=== PATIENT | male | born 1960 | race Caucasian/White ===

== ENCOUNTER 2023-11-28 10:42 | Emergency (ER) | payer OTHER, SELFPAY ==
[2023-11-28 10:47] VITALS: BP 173/109
--- NOTE | 2023-11-28 10:59 | ED.GENMED ---
History of Present Illness
General
Chief Complaint: Musculo-Skeletal Complaint
Source: patient
Exam Limitations: none
Time Seen by Provider: 11/28/23 10:51
Nursing documentation reviewed up to this point in time: agreed with
History of Present Illness
History of Present Illness:
Patient presents to ED secondary to worsening left lower leg pain with swelling over the past 3 days, after initially injuring his left ankle when he was squatting down, working on his RV. Denies any injuries. Denies fever or chills. Denies loss
of sensation or weakness. Denies chest pain or shortness of breath. Patient unsure of family history of blood clots. Patient does not take any blood thinning medications.
Past History
Past History
ED Past Medical History: HTN
ED Past Surgical History: Other (gastric bypass)
Social History
Tobacco: Non-smoker
Living: with family
Review of Systems
Review of Systems
Allergies reviewed?: Yes
All Other Systems: ROS reviewed and negative except as documented in HPI and ROS
Constitutional: Reports no symptoms
Respiratory: Reports no symptoms; Denies trouble breathing
Cardiac: Reports no symptoms; Denies chest pain
Musculoskeletal: Reports other (Leg pain with swelling)
Skin: Reports no symptoms
Neurological: Reports no symptoms; Denies weakness
Phy Exam
Physical Exam
Physical Exam:
Physical Exam
General: no apparent distress, not acutely ill. afebrile
Head: nc/at. eomi
Neck: supple. normal range of motion
Neuro: alert and oriented. no focal neurological deficits
Skin: no rash
Psychiatric: well kept. interactive and cooperative
Extremities: LLE edema with erythema, along with mild posterior knee tenderness to palpation.
Course
Orders/Labs/Results
Orders:
Orders
11/28/23 10:58
Ibuprofen [Motrin] 400 mg PO NOW STA
US Legs, Left [US Periph Venous LOWER Ext LT] Urgent
Comment:
Reason For Exam: LLE swelling/erythema/pain
11/28/23 11:00
CR Ankle - Left Min 3 Views Urgent
Comment:
Reason For Exam: trauma
11/28/23 11:38
Case Management Consult ONCE
Case Management Consult: Discharge Planning
11/28/23 12:43
Apixaban [Eliquis] 5 mg PO NOW STA
11/28/23 12:48
Apixaban [Eliquis] 5 mg .ROUTE .STK-MED ONE
11/28/23 12:49
Apixaban [Eliquis] 5 mg PO NOW STA
Vital Signs
Initial and Last Documented VS:
Initial Vital Signs
Temp Pulse Resp BP Pulse Ox
98.2 F 83 16 173/109 98
11/28/23 10:47 11/28/23 10:47 11/28/23 10:47 11/28/23 10:47 11/28/23 10:47
Last Documented Vital Signs
Temp Pulse Resp BP Pulse Ox
98.2 F 76 19 143/118 94
11/28/23 10:47 11/28/23 12:22 11/28/23 12:22 11/28/23 12:22 11/28/23 12:22
MDM/Problems Addressed
MDM/Problems Addressed:
Ultrasound lower extremity result discussed with on-call vascular surgeon, Dr. Song. As long as there is no common femoral vein involved and pain adequately controlled, feel the patient can be treated as an outpatient via anticoagulation, i.e.
Eliquis/Xarelto.
Eliquis coupon provided by case management. Advised PCP F/U as outpatient or return to ED with worsening symptoms, i.e. fever/worsening pain/cp/sob. Pt expresses understanding at time of discharge.
*Critical Care Note
Total Time (30-74mins, 75-104mins- exclusive of procedures): Not Applicable
ED Attending Note
-
Portions of this chart may have been created with voice recognition software.� Occasional wrong word or��sound alike� substitutions may have occurred due to the inherent limitations of voice recognition software.
Discharge Plan
Departure
Patient Disposition: Home (Routine Discharge)
Date of Disposition: 11/28/23
Time of Disposition: 12:44
Patient with high blood pressure during this ER visit?: Yes
Condition: Good
Discharge Problem:
DVT (deep venous thrombosis)
Instructions: Deep Vein Thrombosis (Blood Clots in the Arm) (DC)
Prescriptions:
New
Eliquis 5 mg tablet
5 mg PO BID Qty: 90 0RF
Rx Instructions:
10mg po BID x 1 week, then 5 mg po BID afterwards
No Action
naproxen sodium [Aleve] 220 MG tablet
220 mg PO PRN PRN (Reason: pain)
Lisinopril
1 tab PO DAILY
hydrocodone-acetaminophen [Vicodin] 1 EACH tablet
1 ea PO Q4H Qty: 20 0RF
docusate sodium [Stool Softener] 100 MG tablet
200 mg PO BID Qty: 0 0RF
cyclobenzaprine 10 MG tablet
10 mg PO TIDPRN PRN (Reason: low back pain/spasm) Qty: 30 0RF
prednisone 20 MG tablet
40 mg PO DAILY Qty: 6 0RF
ibuprofen 600 MG tablet
600 mg PO TIDPRN PRN (Reason: pain) Qty: 30 0RF
Referrals:
Parviz Peter MD [Family Provider] -
Activity Restrictions/Additional Instructions:
As discussed, please follow-up with your primary care physician for further evaluation and treatment. Your prescription has been sent electronically to [facility] pharmacy in [place].
Interventions
Interventions:
*Risk Screen - Suicide Last Done: 11/28/23 11:09
*Neglect/Abuse Screening Last Done: 11/28/23 11:09
ED- Fall Risk Assessment Last Done: 11/28/23 11:09
*Nursing Disposition Last Done: 11/28/23 12:58
ED-Musculoskeletal Assessment Last Done: 11/28/23 11:08
Discharge Date and Time
Discharge Date/Time: 11/28/23 12:58
Print Language: CITIZEN OF [place]
[2023-11-28] MEDS: MOTRIN 400 MG PO (11:05)
[2023-11-28 12:22] VITALS: BP 143/118
[2023-11-28] MEDS: ELIQUIS 5 MG PO ×2 (12:46→12:51)
--- NOTE | 2023-11-28 12:47 | CM ---
CM consult placed for Eliquis pricing. It would cost patient $417 out of pocket. CM introduced self and role. Spoke with patient at bedside. Patient is agreeable to cost. 2 Eliquis coupons given to patient and an education booklet also given to
patient.
Above information shared with Dr. Sinclair, attending.
== END 2023-11-28 12:58 | disposition home or self-care (01) ==
LOC: EMR 10:42
PROVIDERS: EMERGENCY PHYSICIAN Emergency Medicine; FAMILY PHYSICIAN Internal Medicine
DX: I82.402 Acute embolism and thrombosis of unspecified deep veins of left lower extremity (principal); R60.0 Localized edema; M79.662 Pain in left lower leg; I10 Essential (primary) hypertension; M19.90 Unspecified osteoarthritis, unspecified site; Z98.84 Bariatric surgery status
CPT/HCPCS: 99284; 73610; 93971

== ENCOUNTER → 2023-12-25 08:20 | Outpatient (REF) | payer OTHER, SELFPAY | LOC: RAD 08:20 | PROVIDERS: ATTENDING PHYSICIAN Internal Medicine | DX: I82.4Z2 Acute embolism and thrombosis of unspecified deep veins of left distal lower extremity (principal); Z82.49 Family history of ischemic heart disease and other diseases of the circulatory system; M99.83 Other biomechanical lesions of lumbar region; M79.641 Pain in right hand | CPT/HCPCS: 93971 ==

== ENCOUNTER 2024-08-19 12:37 | Inpatient (IN) | payer OTHER, SELFPAY ==
[2024-08-19 06:35] VITALS: BP 192/111
[2024-08-19 07:05] VITALS: BMI 57.7
--- NOTE | 2024-08-19 07:05 | ED.GENMED ---
History of Present Illness
General
Chief Complaint: Flank Pain
Source: patient
Exam Limitations: none
Time Seen by Provider: 08/19/24 06:44
Nursing documentation reviewed up to this point in time: agreed with
History of Present Illness
History of Present Illness:
64-year-old male with past medical history of hypertension, previous gastric bypass, DVT currently on Eliquis presenting to the emergency department with abrupt onset of right-sided flank pain with radiation to the right groin over the past 3 hours
or so. He has associated nausea no vomiting no diarrhea no changes in bowel movements. Had a normal bowel movement this morning. Denies any chest pain shortness of breath or fevers. Denies similar symptoms in the past.
Past History
Past History
ED Past Medical History: HTN
ED Past Surgical History: Other (gastric bypass)
Social History
Tobacco: Non-smoker
Living: with family
Review of Systems
Review of Systems
Allergies reviewed?: Yes
All Other Systems: ROS reviewed and negative except as documented in HPI and ROS
Phy Exam
Physical Exam
Physical Exam:
GENERAL: Alert , in no apparent distress
EYE: pupils equal and reactive
NECK: Supple, no significant adenopathy.
ENT: o/p clr, mmm.
CARDIAC: Regular rate and rhythm .
LUNGS: Clear breath sounds bilaterally, no acute respiratory distress, no wheezes/rales/rhonchi
ABDOMEN: Soft, without focal tenderness, no r/g, no cvat
NEUROLOGICAL: Alert and oriented, no focal neuro deficits
SKIN: Warm and dry, skin intact.
MUSCULOSKELETAL: No edema, well perfused.
PSYCH: Normal and appropriate interaction.
Course
Orders/Labs/Results
Orders:
Orders
08/19/24 06:59
CT Abd/pel Without Iv Or Oral Urgent
Comment:
Reason For Exam: right flank pain
0.9% Sodium Chloride 1000 ml [Nss] 1,000 ml IV BOLUS
HYDROmorphone [Dilaudid] 1 mg IV NOW STA
08/19/24 07:18
Complete Blood Count/With Diff Urgent
Comprehensive Metabolic Panel Urgent
Urinalysis Reflex To Culture Urgent
Date Specimen was Collected: 08/19/24
Time Specimen was Collected: 06:47
Urine Microscopic Reflex Cult Urgent
08/19/24 07:48
Morphine Sulfate 4 mg IV NOW STA
08/19/24 08:26
Morphine Sulfate 4 mg IV NOW STA
Tamsulosin [Flomax] 0.4 mg PO NOW STA
Abnormal Lab Results
08/19/24
07:18
WBC 13.1 H 10^3/uL
(4.8-10.8)
MCHC 31.8 L g/dL
(33.0-37.0)
MPV 12.0 H fL
(7.4-10.4)
Abs Immat Gran (auto) 0.1 H 10^3/uL
(0-0.05)
Absolute Neuts (auto) 11.4 H 10^3/uL
(1.4-6.5)
Absolute Lymphs (auto) 0.9 L 10^3/uL
(1.2-3.4)
Absolute Monos (auto) 0.7 H 10^3/uL
(0.1-0.6)
Neutrophils % 87.0 H %
(42.2-75.2)
Lymphocytes % 6.8 L %
(20.5-51.1)
Chloride 112 H mmol/L
(98-107)
Glucose 159 H mg/dl
(70-99)
Ur Occult Blood Reflex 3+ A
(Negative)
Urine Bacteria (Reflex) Few A
(Negative)
08/19/24 07:18
08/19/24 07:18
Vital Signs
Initial and Last Documented VS:
Initial Vital Signs
Temp Pulse Resp BP Pulse Ox
97.7 F 61 30 192/111 98
08/19/24 06:35 08/19/24 06:35 08/19/24 06:35 08/19/24 06:35 08/19/24 06:35
Last Documented Vital Signs
Temp Pulse Resp BP Pulse Ox
97.7 F 61 30 192/111 98
08/19/24 06:35 08/19/24 06:35 08/19/24 06:35 08/19/24 06:35 08/19/24 06:35
MDM/Problems Addressed
MDM/Problems Addressed:
64-year-old male presenting with concerns of abrupt onset of right-sided flank pain. Concern for potential kidney stone plan for CT scan labs and urinalysis. The patient had a gastric bypass and also is on Eliquis. Unable to give Toradol.
Patient was given Dilaudid for discomfort. Thought did not help patient was given 2 doses of morphine without improvement. Case discussed with urology recommended admitting to medicine for pain control Flomax for monitoring and potential
intervention if symptoms or not improving.
*Critical Care Note
Total Time (30-74mins, 75-104mins- exclusive of procedures): Not Applicable
ED Attending Note
-
Portions of this chart may have been created with voice recognition software.� Occasional wrong word or��sound alike� substitutions may have occurred due to the inherent limitations of voice recognition software.
Discharge Plan
Departure
Patient Disposition: Admit
Date of Disposition: 08/19/24
Time of Disposition: 10:25
Admit to: Med/Surg
Admit to doctor: Christy
Presentation/result/management discussed w/ accepting MD/DO: Hospitalist
Patient with high blood pressure during this ER visit?: No
Condition: Good
Covid-19: Not Applicable
Discharge Problem:
Calculus, ureteral
Prescriptions:
No Action
naproxen sodium [Aleve] 220 MG tablet
220 mg PO PRN PRN (Reason: pain)
Lisinopril
1 tab PO DAILY
hydrocodone-acetaminophen [Vicodin] 1 EACH tablet
1 ea PO Q4H Qty: 20 0RF
docusate sodium [Stool Softener] 100 MG tablet
200 mg PO BID Qty: 0 0RF
cyclobenzaprine 10 MG tablet
10 mg PO TIDPRN PRN (Reason: low back pain/spasm) Qty: 30 0RF
prednisone 20 MG tablet
40 mg PO DAILY Qty: 6 0RF
ibuprofen 600 MG tablet
600 mg PO TIDPRN PRN (Reason: pain) Qty: 30 0RF
Eliquis 5 mg tablet
5 mg PO BID Qty: 90 0RF
Rx Instructions:
10mg po BID x 1 week, then 5 mg po BID afterwards
Referrals:
Parviz Peter MD [Family Provider] -
Interventions
Interventions:
*Risk Screen - Suicide Last Done: 08/19/24 06:35
*General Assessment Last Done: 08/19/24 07:05
*Neglect/Abuse Screening Last Done: 08/19/24 07:05
*ED- Fall Risk Assessment Last Done: 08/19/24 07:05
*ED COVID-19 Vaccine History Last Done: 08/19/24 07:05
KL-Qmmzzo-Wshrlabhkh Assessment Last Done: 08/19/24 07:05
ED-Male Genitourinary Assessment Last Done: 08/19/24 07:05
Discharge Date and Time
Print Language: FRENCH
[2024-08-19] MEDS: NSS 1000 IV ×2 (07:18→14:37)
[2024-08-19] MEDS: DILAUDID 1 MG IV (07:19)
[2024-08-19 07:44] LABS: % Basophils 0.4 % (0-2); % Eosinophils 0.3 % (0-6); % Immature Granulocytes 0.4 % (0-0.5); % Lymphocytes 6.8 % (20.5-51.1); % Monocytes 5.1 % (1.7-9.3); Absolute Basophils 0.1 10^3/uL (0-0.2); Absolute Immature Granulocytes 0.1 10^3/uL (0-0.05); Absolute Lymphocytes 0.9 10^3/uL (1.2-3.4); Absolute Monocytes 0.7 10^3/uL (0.1-0.6); Absolute Neutrophils 11.4 10^3/uL (1.4-6.5); Hematocrit 46.8 % (39.0-52.0); Hemoglobin 14.9 g/dL (13.0-18.0); Mean Corp Hgb Conc. 31.8 g/dL (33.0-37.0); Mean Corpuscular Hgb 27.9 pg (27.0-31.0); Mean Corpuscular Volume 87.5 fL (80.0-94.0); Nucleated Red Blood Cells % 0 % (-); Platelet Count 296 10^3/uL (130-400); Red Blood Cell Count 5.35 10^6/uL (4.70-6.10); Red Cell Dist. Width 14.1 % (11.5-14.5); White Blood Cell Count 13.1 10^3/uL (4.8-10.8)
[2024-08-19 07:56] LABS: ALT (SGPT) 31 U/L (0-50); AST (SGOT) 26 U/L (17-59); Alkaline Phosphatase 85 U/L (38-126); Blood Urea Nitrogen 15 mg/dl (9-20); Calcium 9.2 mg/dl (8.4-10.2); Carbon Dioxide 27 mmol/L (22-30); Chloride 112 mmol/L (98-107); Estimated Creatinine Clearance 108 ml/min; Glucose 159 mg/dl (70-99); Potassium 4.7 mmol/L (3.5-5.1); Sodium 144 mmol/L (135-145); Total Bilirubin 0.6 mg/dl (0.2-1.3); Total Protein 7.1 g/dl (6.3-8.2); eGFR > 60.00
[2024-08-19] MEDS: MORPHINE SULFATE 4 MG IV ×3 (08:09→11:23)
[2024-08-19 08:28] LABS: Urine Albumin Negative (Neg - Trace); Urine Bilirubin Negative (Negative); Urine Character Slightly Cloudy (Clear); Urine Color Yellow; Urine Glucose Negative (Negative); Urine Ketone Negative (Negative); Urine Leukocyte Negative (Negative); Urine Nitrite Negative (Negative); Urine Occult Blood 3+ (Negative); Urine Urobilinogen Negative (Neg - 1+)
[2024-08-19] MEDS: FLOMAX 0.4 MG PO (08:37)
[2024-08-19 08:56] LABS: Urine Bacteria Few (Negative); Urine Red Blood Cell 0-2 /HPF (0-2); Urine White Cell 0-2 /HPF (0-5)
--- NOTE | 2024-08-19 11:31 | HPS.HSE ---
Family Physician
-
Family Physician: Kenneth Peter
Chief Complaint
-
R flank pain
History of Present Illness
64yo M with morbid obesity, HTN, Hx of provoked DVT in November 2023 (due to trauma) on ELiquis came with sudden onset of R flank pain, found 4 mm calculus of the right ureterovesical junction with associated mild right hydroureteronephrosis. No
fevers at home noted. No Hx of nephrolithiasis.
Patient was recently scheduled for US LE to determine if Eliquis can be stopped. Reasonable to withhold therapeutic anticoagulation and do US LE to determine if he needs heparin bridging.
Medical History
Past Medical History
Past Medical History: Reports Other
Additional Past Medical History:
see HPI
Past Surgical History: Reports None
Social History
Tobacco: Non-smoker
Alcohol: None
Drug: None
Family History
Family History: Not pertinent
Allergies / Home Medications
Allergies reflects when Allergies were last updated in [employer].
Home Medications with original date entered in [employer]
Allergy/Medication List:
Allergies
Allergy/AdvReac Type Severity Reaction Status Date / Time
No Known Allergies Allergy Verified 08/19/24 06:35
Home Medications
lisinopril 20 mg tablet 20 mg PO DAILY ##0 12/08/14
apixaban 5 mg tablet (Eliquis) 5 mg PO BID #90 tabs 11/28/23
acetaminophen 325 mg tablet (Tylenol) 650 mg PO Q6HPRN PRN mild pain 08/19/24
docusate sodium 100 mg capsule (Colace) 100 mg PO BIDPRN PRN constipation 08/19/24
gabapentin 300 mg capsule 900 mg PO HS 08/19/24
oxycodone 5 mg tablet 10 mg PO Q6HPRN PRN severe pains 08/19/24
Review of Systems
-
History Source: Patient
A 12 point ROS was completed and negative except as noted: Yes
: Reports See HPI
Physical Exam
Vital Signs
Vital Signs
Temp Pulse Resp BP Pulse Ox
97.7 F 61 30 192/111 98
08/19/24 06:35 08/19/24 06:35 08/19/24 06:35 08/19/24 06:35 08/19/24 06:35
Physical Exam
General: No Apparent Distress, Comfortable and Morbidly Obese
HEENT: NormoCephalic, Anicteric and Moist mucous membranes
Respiratory: Clear; No Wheezes or Crackles
Cardiac: S1/S2 and Regular Rhythm; No Murmur
GI: Soft, Non Tender and Non Distended
Genito-urinary: Costovertebral angle tend (R)
Musculoskeletal: No Clubbing, No Cyanosis and No Edema
Skin: Warm; No Dry or Jaundice
Neuro: Awake, Alert, Oriented, AO x 3 and No Motor Deficits
Psych: Calm
Laboratory Results
-
08/19/24 07:18
08/19/24 07:18
Laboratory Results
Total Bilirubin 0.6 mg/dl (0.2-1.3) 08/19/24 07:18
AST 26 U/L (17-59) 08/19/24 07:18
ALT 31 U/L (0-50) 08/19/24 07:18
Alkaline Phosphatase 85 U/L (38-126) 08/19/24 07:18
Data Reviewed
-
CT Scan: Report Reviewed by me
Lab Data: Labs Reviewed by me
Impression/Plan
-
A/P:
#4 mm calculus of the right ureterovesical junction with associated mild right hydroureteronephrosis
#Mild perinephric strading with leukocytosis
low concern for infection, but YUA can be false with obstructive nephropathy
Ceftriaxone pendin g Urology
IVf
Tamsulosin
Pain mgmt
#Hx of DVT
Last eliquis at PM 08/18/24
US LE and if neg for DVT - cont prophylactic dose only
#EssentiaL HTN
poorly controlled 2/2 pain
provide pain control and Hydralazine PRN
#Morbid obesity
BMI 57.7
Decrease calorie intake
#Stable bilateral adrenal adenomas
#Small simple appearing left renal cyst
no follow up advised
DVT ppx Lovenox
Full code
I have spent at least 76min reviewing chart, test results, communication with family and providing direct patient care
[2024-08-19 11:35] VITALS: BP 175/102
--- NOTE | 2024-08-19 12:16 | CONS.URO ---
Consultation
-
Date/Time Consultation Performed: 08/19/24 11:45
Requesting Provider: ED
Performing Provider: Larry
Reason for Consultation: right UVJ stone, intractable renal colic
Medical History
History of Present Illness
64M presenting w/ acute onset of right flank pain w/ radiation to right groin/testicle since 0300 this AM.
Denies F/C.
Notes lack of appetite since onset of symptoms.
Denies vomiting.
H/o provoked DVT 11/2023 (from leg trauma) on Eliquis (last dose PM 08/18).
Past Medical History
Past Medical History: HTN and Other (morbid obesity, provoked DVT (on Eliquis))
Past Surgical History: None
Social History
Tobacco: Non-smoker
Alcohol: None
Drug: None
Personal:
Living: With Family
Employment: Employed
Family History
Family History: Reviewed & Not Pertinent
Allergies/Home Medications
Allergies
Allergy/AdvReac Type Severity Reaction Status Date / Time
No Known Allergies Allergy Verified 08/19/24 06:35
Home Medications
�Medication �Instructions �Recorded �Confirmed �Type
lisinopril 20 mg tablet 20 mg PO DAILY ##0 12/08/14 08/19/24 History
apixaban 5 mg tablet (Eliquis) 5 mg PO BID #90 tabs 11/28/23 08/19/24 Rx
acetaminophen 325 mg tablet 650 mg PO Q6HPRN PRN mild pain 08/19/24 08/19/24 History
(Tylenol)
docusate sodium 100 mg capsule 100 mg PO BIDPRN PRN constipation 08/19/24 08/19/24 History
(Colace)
gabapentin 300 mg capsule 900 mg PO HS 08/19/24 08/19/24 History
oxycodone 5 mg tablet 10 mg PO Q6HPRN PRN severe pains 08/19/24 08/19/24 History
Review of Systems
-
History Source: Patient and Family
A 12 point Review of Systems was completed except as noted: Yes
Physical Exam
Vital Signs
Vital Signs
Temp Pulse Resp BP Pulse Ox
97.7 F 65 30 175/102 95
08/19/24 06:35 08/19/24 11:35 08/19/24 06:35 08/19/24 11:35 08/19/24 11:35
Lab / Testing Results
Laboratory Results
08/19/24 07:18
08/19/24 07:18
Physical Exam
General: Well Developed, Well Nourished, No Apparent Distress and Pain
HEENT: Normocephalic and Anicteric
Respiratory: Non Labored Respirations
Cardiac: Regular Rhythm
Breast: N/A
GI: Soft, Non Tender and Non Distended
Rectal: Deferred by Provider
Genito-urinary: Clear Urine
Musculoskeletal: No Edema
Neuro: AO x 3, No Motor Deficits and Nonfocal/Grossly Intact
Hematologic/Lymphatic: No Lymphadenopathy
Psych: Calm and Intact Judgement
Assessment / Plan
-
Intractable right renal colic
Obstructing small right UVJ stone w/ mild hydronephrosis
WBC 13
Cr WNL
UA WNL
Non-toxic, afebrile, hemodynamically stable.
CT imaging reviewed => small right UVJ stone w/ mild right hydroureteronephrosis.
Based on stone size and distal location '' at UVJ, HIGH likelihood of passage w/ medical expulsive therapy.
Detailed discussion including SDM had w/ patient - risks, benefits, alternatives, and potential complications of ureteroscopy/laser lithotripsy/stone extraction/stent placement reviewed.
- NPO@MN for possible right ureteroscopy/stone extraction 08/20
- High-rate IVF + generous PO fluid intake
- Tamsulosin 0.4 mg daily
- Strain urine
- KUB in AM
D/w patient, spouse, and son.
Data Reviewed
-
Total Time Spent with Patient (in minutes): 40
CT Scan: Image personally visualized and interpreted, Report Reviewed by Me, Discussed with Physician, Discussed with Patient and Discussed with Family
Lab Data: Labs Reviewed, Discussed with Physician, Discussed with Patient and Discussed with Family
Old Records: Reviewed
--- NOTE | 2024-08-19 12:56 | W.PN.UPDATE ---
Update Note
Progress Note Update
#Nonocclusive thrombus within the left popliteal vein
bridging heparin
[2024-08-19] MEDS: ROCEPHIN 1000 MG IV (13:07)
[2024-08-19] MEDS: STERILE WATER FOR INJECTION 10 ML IV (13:14)
[2024-08-19] MEDS: HEPARIN 25000 UNITS/250 ML IV (13:38)
[2024-08-19 13:45] VITALS: BP 133/88
[2024-08-19 13:53] LABS: APTT 27.3 Sec (23.4-35.0)
[2024-08-19 14:20] VITALS: BP 167/101
--- NOTE | 2024-08-19 14:55 | PTCARENOTE ---
pt presents from ED via stretcher. pt is AAO*3, BP 167/101 HR 78. pt doesn't meet the parameter for PRN Hydralazine at this time. pt ambulated to the bed. pt is on hep gtt. pt oriented to the room. call zapien within the reach. plan of care ongoing.
[2024-08-19 20:24] LABS: APTT 34.3 Sec (23.4-35.0)
[2024-08-19] MEDS: HEPARIN 10000 UNITS IV (20:55)
[2024-08-19 22:11] VITALS: PULSE 100
[2024-08-19 23:26] VITALS: BP 126/71
[2024-08-20] MEDS: HEPARIN 25000 UNITS/250 ML IV (00:47)
[2024-08-20] MEDS: NSS 1000 IV (02:42)
[2024-08-20 03:55] LABS: APTT 60.4 Sec (23.4-35.0)
[2024-08-20] MEDS: HEPARIN 10000 UNITS IV (04:05)
[2024-08-20 07:30] VITALS: BP 143/76
[2024-08-20] MEDS: ZESTRIL 20 MG PO (07:42)
--- NOTE | 2024-08-20 08:14 | W.PN.UPDATE ---
Addendum entered and electronically signed by Robles Juarez MD 08/20/24 11:54:
OK to d/c home - no urologic F/U indicated for this admission (F/U prn)
D/w Hospitalist.
Original Note:
Update Note
Progress Note Update
Patient on MET since admission 08/19 for small right UVJ stone.
Right flank and pelvic pain RESOLVED yesterday evening - patient notes NO right-sided symptoms o/n or this AM.
KUB from this AM w/o obvious stone noted (formal read pending).
D/w patient this AM.
Plan:
- CANCEL OR plan for right ULS
- Regular diet ordered
Urology signing off - please call w/ any questions.
[2024-08-20 10:14] LABS: % Basophils 0.4 % (0-2); % Eosinophils 1.6 % (0-6); % Immature Granulocytes 0.7 % (0-0.5); % Lymphocytes 15.4 % (20.5-51.1); % Monocytes 6.4 % (1.7-9.3); % Neutrophils 75.5 % (42.2-75.2); Absolute Eosinophils 0.2 10^3/uL (0-0.7); Absolute Immature Granulocytes 0.1 10^3/uL (0-0.05); Absolute Lymphocytes 1.5 10^3/uL (1.2-3.4); Absolute Monocytes 0.6 10^3/uL (0.1-0.6); Absolute Neutrophils 7.2 10^3/uL (1.4-6.5); Hematocrit 42.6 % (39.0-52.0); Hemoglobin 13.9 g/dL (13.0-18.0); Mean Corp Hgb Conc. 32.6 g/dL (33.0-37.0); Mean Corpuscular Hgb 28.3 pg (27.0-31.0); Mean Corpuscular Volume 86.6 fL (80.0-94.0); Mean Platelet Volume 11.6 fL (7.4-10.4); Nucleated Red Blood Cells % 0 % (-); Platelet Count 271 10^3/uL (130-400); Red Blood Cell Count 4.92 10^6/uL (4.70-6.10); Red Cell Dist. Width 14.3 % (11.5-14.5); White Blood Cell Count 9.6 10^3/uL (4.8-10.8)
[2024-08-20] MEDS: TYLENOL 650 MG PO (10:42)
[2024-08-20] MEDS: ELIQUIS 5 MG PO (10:43)
[2024-08-20 10:54] LABS: Blood Urea Nitrogen 14 mg/dl (9-20); Calcium 9.2 mg/dl (8.4-10.2); Carbon Dioxide 26 mmol/L (22-30); Chloride 112 mmol/L (98-107); Estimated Creatinine Clearance > 125 ml/min; Glucose 114 mg/dl (70-99); Potassium 4.3 mmol/L (3.5-5.1); Sodium 143 mmol/L (135-145); eGFR > 60.00
--- NOTE | 2024-08-20 11:02 | W.PN.HOSP.TC ---
Today's Communication/Plan
-
dc
Assessment / Plan
Assessment / Plan
64yo M with morbid obesity, HTN, Hx of provoked DVT in November 2023 (due to trauma) on ELiquis came with sudden onset of R flank pain, found 4 mm calculus of the right ureterovesical junction with associated mild right hydroureteronephrosis. No
fevers at home noted. No Hx of nephrolithiasis. Eventually passed small stone and pain entirely resolved. No foul smelling urine, and as per Urology review of XR - no need in procedure. Medically stable for d/c home off Abx. Will need to cont
Eliquis due to persistent LLE DVT
I have spent at least 40min reviewing chart, test results, comunication with consultants and providing direct patient care
A/P:
#4 mm calculus of the right ureterovesical junction with associated mild right hydroureteronephrosis
#Mild perinephric strading with leukocytosis
low concern for infection, but YUA can be false with obstructive nephropathy
Ceftriaxone pendin g Urology
IVf
Tamsulosin
Pain mgmt
#Essential HTN
poorly controlled 2/2 pain
provide pain control and Hydralazine PRN
#Morbid obesity
BMI 57.7
Decrease calorie intake
#Nonocclusive thrombus within the left popliteal vein
bridging heparin
#Stable bilateral adrenal adenomas
#Small simple appearing left renal cyst
no follow up advised
DVT ppx Lovenox
Full code
Anticipated Discharge: Today
Subjective/Interval History
-
Date of Service: August 20, 2024
Objective Data
-
Labs:
Laboratory Results
08/20/24 08/20/24
03:29 10:07
WBC 9.6
Hgb 13.9
Hct 42.6
Plt Count 271
APTT 60.4 H 31.0
Sodium 143
Potassium 4.3
Chloride 112 H
Carbon Dioxide 26
BUN 14
Creatinine 0.9
Glucose 114 H
Calcium 9.2
Vital Signs:
Vital Signs
Temp Pulse Resp BP Pulse Ox
98.4 F 78 18 143/76 100
08/20/24 07:30 08/20/24 07:42 08/20/24 07:30 08/20/24 07:42 08/20/24 10:02
I&O
08/19/24 08/20/24 08/21/24
06:59 06:59 06:59
Intake Total 2519 / 2519
Balance 0 / 2519
Review of Systems
-
History Source: Patient
All other systems: Reviewed and negative
Physical Exam
-
General: No Apparent Distress
HEENT: Normocephalic
Cardiac: Regular Rhythm
GI: Soft, Nontender and Nondistended
Neuro: Awake, Alert, Oriented and AO x 3
Psych: Calm
--- NOTE | 2024-08-20 11:06 | W.DCSUMMARY ---
Discharge Summary
Discharge Data
Date of Admission: 08/19/24
Date of Discharge: 08/20/24
-
Pending Results: No
Hospital Course
64yo M with morbid obesity, HTN, Hx of provoked DVT in November 2023 (due to trauma) on ELiquis came with sudden onset of R flank pain, found 4 mm calculus of the right ureterovesical junction with associated mild right hydroureteronephrosis. No
fevers at home noted. No Hx of nephrolithiasis. Eventually passed small stone and pain entirely resolved. No foul smelling urine, and as per Urology review of XR - no need in procedure. Medically stable for d/c home off Abx. Will need to cont
Eliquis due to persistent LLE DVT
I have spent at least 40min reviewing chart, test results, comunication with consultants and providing direct patient care
patient was managed for:
#4 mm calculus of the right ureterovesical junction with associated mild right hydroureteronephrosis
#Mild perinephric strading with leukocytosis
#Essential HTN
#Morbid obesity
#Nonocclusive thrombus within the left popliteal vein
#Stable bilateral adrenal adenomas
#Small simple appearing left renal cyst
Discharge Plan
-
Patient Disposition: Home (Routine Discharge)
Discharge Diagnosis/Procedures: nephrolithiasis
Diet: Low Cholesterol
Activity: As tolerated
Driving Restrictions: As prior to admission
Referrals:
Parviz Peter MD [Family Provider] -
Prescriptions:
Continued
lisinopril 20 mg Tablet
20 mg PO DAILY Qty: 0
acetaminophen [Tylenol] 325 mg Tablet
650 mg PO Q6HPRN PRN (Reason: mild pain)
docusate sodium [Colace] 100 mg Capsule
100 mg PO BIDPRN PRN (Reason: constipation)
gabapentin 300 mg Capsule
900 mg PO HS
Eliquis 5 mg tablet
5 mg PO BID
Discontinued
oxycodone 5 mg Tablet
10 mg PO Q6HPRN PRN (Reason: severe pains)
Discharge Orders:
Discharge Patient (As Directed); Ordered 08/20/24
Ordered By: Mina Harrison
Discharge Date and Time
Print Language: VINCENTIAN
[2024-08-20] MEDS: NSS IV (12:07)
[2024-08-20 12:11] VITALS: BP 155/87
[2024-08-20 12:51] LABS: Hepatitis C Antibody Negative (Negative)
--- NOTE | 2024-08-20 17:18 | CM ---
Met with patient to obtain information for assessment. Patient stated that he lives with his spouse and son in a two story single home with two steps to enter. He described himself as independent with his ADLs, personal care, dressing and bathing.
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 He has a CPAP a cane and a walker. He has never had VN services, never been to a SNF.
Plan: Case management will continue to follow and assist with discharge planning. Home. Son will transport.
== END 2024-08-20 13:16 | disposition home or self-care (01) | DRG 694 ==
LOC: 4 EAST ACU 12:37
PROVIDERS: Physician Assistant; ADMITTING PHYSICIAN Internal Medicine; EMERGENCY PHYSICIAN Emergency Medicine; FAMILY PHYSICIAN Internal Medicine; OTHER PHYSICIAN Surgery
PROC: 5A09357 Assistance with Respiratory Ventilation, Less than 24 Consecutive Hours, Continuous Positive Airway Pressure (ICD-10-PCS; 2024-08-19)
DX: N13.2 Hydronephrosis with renal and ureteral calculous obstruction (principal); Z68.43 Body mass index [BMI] 50.0-59.9, adult; I82.432 Acute embolism and thrombosis of left popliteal vein; I82.442 Acute embolism and thrombosis of left tibial vein; I10 Essential (primary) hypertension; E66.01 Morbid (severe) obesity due to excess calories; D35.01 Benign neoplasm of right adrenal gland; D35.02 Benign neoplasm of left adrenal gland; D72.829 Elevated white blood cell count, unspecified; N28.1 Cyst of kidney, acquired; Z98.84 Bariatric surgery status; Z86.718 Personal history of other venous thrombosis and embolism; Z79.01 Long term (current) use of anticoagulants; Z92.3 Personal history of irradiation
CPT/HCPCS: 74018; 74176; 80048; 80053; 81003; 81015; 85025; 85730; 86803; 93970; 96361; 96374; 96375; 96376; 99285

== ENCOUNTER → 2024-11-18 07:01 | Outpatient (REF) | payer OTHER, SELFPAY | LOC: HWRAD 07:01 | PROVIDERS: ATTENDING PHYSICIAN Internal Medicine | DX: R14.3 Flatulence (principal); R19.8 Other specified symptoms and signs involving the digestive system and abdomen; R19.5 Other fecal abnormalities | CPT/HCPCS: 76700 ==